=== PATIENT | female | born 1970 | race African-American/Black ===

== ENCOUNTER 2019-05-31 01:40 | Emergency (ER) | payer MEDICAID, OTHER ==
[~2019-05-31] VITALS: Ht 172.7 cm; Wt 78.0 kg
[2019-05-31] MEDS ORDERED: MORPHINE SULFATE 4 MG/ML CPJ (NOT FOR IM USE) IV STA (02:14)
[2019-05-31] MEDS ORDERED: ONDANSETRON HCL 4MG/2ML INJ IV STA (02:14)
[2019-05-31] MEDS ORDERED: ASPIRIN 81MG TABLET PO ONE (02:15)
[2019-05-31] MEDS ORDERED: NITROGLYCERIN 0.4MG TABLET SL SL PRN (02:15)
[2019-05-31 02:52] LABS: CHLORIDE 108 mEq/L (98-107)
[2019-05-31 03:06] LABS: INR 1.1; PARTIAL THROMBOPLASTIN TIME 32.7 sec (23.4-31.0); PROTHROMBIN TIME 10.9 sec (9.6-11.0)
[2019-05-31 03:15] LABS: BASOPHILS % 0.3 % (0.0-2.0); EOSINOPHILS % 1.5 % (0.0-5.0); HEMATOCRIT. 32.5 % (36.0-48.0); HEMOGLOBIN. 10.6 g/dL (12.0-16.0); LYMPHOCYTES % 50.8 % (20.0-50.0); MEAN CORPUSCULAR HEMOGLOBIN 28.2 pg (28.0-32.0); MEAN CORPUSCULAR VOLUME 86.5 fL (81.0-99.0); MEAN PLATELET VOLUME 8.6 fl (7.4-10.4); MONOCYTES % 8.9 % (2.0-8.0); NEUTROPHILS % 38.5 % (40.0-76.0); PLATELET 197 x1000/uL (130-400); RED BLOOD CELL COUNT 3.75 mill/uL (4.2-5.4); RED CELL DISTRIBUTION WIDTH 13.6 % (11.6-14.6)
[2019-05-31 05:25] VITALS: BP 101/69
== END 2019-05-31 05:28 | disposition left against medical advice (07) ==
LOC: ER 01:40
DX: R07.9 Chest pain, unspecified (principal); I48.91 Unspecified atrial fibrillation; Z88.0 Allergy status to penicillin
CPT/HCPCS: 36415; 71045; 80053; 81025; 83880; 84484; 85025; 85610; 85730; 93005; 96374; 96375; 99284; J2270; J2405

== ENCOUNTER → 2020-07-18 | Outpatient (CLI) | payer MEDICAID ==
[~2020-07-18] MED LIST: ASPI-1497 PO; DILT-26 MT; LORA-859 MT; MULT-1146 MT; RIVA20TA MT; VITA1CAP16 PO
== END | disposition home or self-care (01) ==
LOC: LAB 10:39
PROVIDERS: ATTEND Internal Medicine Clinical Cardiac Electrophysiology
DX: Z20.828 Contact with and (suspected) exposure to other viral communicable diseases (principal); R00.2 Palpitations; I48.20 Chronic atrial fibrillation, unspecified
CPT/HCPCS: 87426